=== PATIENT | female | born 1940 | race Caucasian/White ===

== ENCOUNTER 2022-08-13 14:36 | Inpatient (IN) | payer MEDICARE ==
[2022-08-13 18:43] VITALS: BMI 25.8
[2022-08-13] MEDS ORDERED: Ondansetron ODT 4 MG TAB PO PRN (19:16)
[2022-08-13] MEDS ORDERED: Acetaminophen 650 MG Suppository PR PRN (19:16)
[2022-08-13] MEDS ORDERED: Ondansetron PF 4 MG/2 ML Vial IVP PRN (19:16)
[2022-08-13 19:56] LABS: #Lymphocytes 0.7 thou/uL (1.20-3.40); #Neutrophils 7.5 thou/uL (1.40-6.50); %Basophils 0.2 % (0.0-1.0); %Eosinophils 0.1 % (0.0-10.0); %Lymphocytes 8.8 % (21.0-51.0); %Monocytes 0.3 % (0.0-10.0); %Neutrophils 90.7 % (42.0-75.0); Hemoglobin 13.8 g/dL (12.0-16.0); Mean Corpuscular HGB CONC 33.2 g/dL (32.0-36.0); Mean Corpuscular Hemoglobin 31.2 pg (27.0-31.0); Mean Corpuscular Volume 93.9 fl (78.0-98.0); Mean Platelet Volume 6.4 fL (7.4-10.4); Platelet Count 359 thou/uL (130-400); RBC Distribution Width 12.6 % (11.5-14.5); Red Blood Cell (RBC) Count 4.43 mill/uL (4.20-5.40); White Blood Cell (WBC) Count 8.2 thou/uL (4.8-10.8)
[2022-08-13] MEDS ORDERED: Ketorolac Tromethamine 30 MG/ML VIAL IVP PRN (19:58)
[2022-08-13] MEDS ORDERED: FLU VACC QS2022-23(65YR UP)/PF 240 MCG/0.7 ML SYRINGE IM ONE (20:15)
[2022-08-13 20:25] LABS: ALT (SGPT) 20 U/L (8-55); AST (SGOT) 15 U/L (5-34); Albumin 4.5 g/dL (3.4-4.8); Alkaline Phosphatase 100 U/L (40-110); Anion Gap 14 mmol/L (10-20); BUN (Urea Nitrogen) 13 mg/dL (9.8-20.1); Bilirubin, Total 0.4 mg/dL (0.2-1.2); Calc. Creatinine Clearance 60 mL/min (70-130); Calcium 10.4 mg/dL (7.8-10.44); Carbon Dioxide 21 mmol/L (23-31); Chloride 107 mmol/L (98-107); Estimated GFR 70; Globulin 3.4 g/dL (2.4-3.5); Glucose 144 mg/dL (83-110); Potassium 3.9 mmol/L (3.5-5.1); Protein, Total 7.9 g/dL (5.8-8.1); Sodium 138 mmol/L (136-145)
[2022-08-13 20:28] LABS: Troponin I Less than 0.010 ng/mL (< 0.028)
[2022-08-13 20:51] LABS: Phosphorus 2.9 mg/dL (2.3-4.7)
[2022-08-13] MEDS ORDERED: Lactated Ringer's 1,000 ML IV SCH (21:00)
[2022-08-13] MEDS: traZODone HCl 150 MG TAB PO SCH (21:01)
[2022-08-13 23:02] LABS: Troponin I Less than 0.010 ng/mL (< 0.028)
[2022-08-14 05:01] LABS: #Lymphocytes 1.5 thou/uL (1.20-3.40); #Monocytes 0.6 thou/uL (0.11-0.59); %Basophils 0.1 % (0.0-1.0); %Eosinophils 0.2 % (0.0-10.0); %Neutrophils 76.8 % (42.0-75.0); Hemoglobin 12.1 g/dL (12.0-16.0); Mean Corpuscular HGB CONC 33.1 g/dL (32.0-36.0); Mean Corpuscular Hemoglobin 31.5 pg (27.0-31.0); Mean Corpuscular Volume 95.2 fl (78.0-98.0); Mean Platelet Volume 6.6 fL (7.4-10.4); Platelet Count 303 thou/uL (130-400); RBC Distribution Width 12.7 % (11.5-14.5); Red Blood Cell (RBC) Count 3.83 mill/uL (4.20-5.40); White Blood Cell (WBC) Count 9.1 thou/uL (4.8-10.8)
[2022-08-14 05:22] LABS: Anion Gap 13 mmol/L (10-20); BUN (Urea Nitrogen) 19 mg/dL (9.8-20.1); Calc. Creatinine Clearance 67 mL/min (70-130); Calcium 9.6 mg/dL (7.8-10.44); Carbon Dioxide 23 mmol/L (23-31); Cardiac Risk 2.2 (Less than 4.5); Chloride 106 mmol/L (98-107); Cholesterol 116 mg/dl (< 200 Desired); Estimated GFR 80; Glucose 113 mg/dL (83-110); HDL Cholesterol 52 mg/dL (>60 Neg Risk); LDL Cholesterol, Calculated 49 mg/dL; Potassium 3.7 mmol/L (3.5-5.1); Sodium 138 mmol/L (136-145); Triglycerides 77 mg/dL (Less than 150)
[2022-08-14] MEDS ORDERED: EVOLOCUMAB 420 MG/3.5 ML SC SCH (09:00)
[2022-08-14] MEDS: Venlafaxine HCl XR 150 MG CAP PO SCH (09:33)
[2022-08-14] MEDS: Aspirin 81 mg Enteric Coated Tablet PO SCH (09:33)
[2022-08-14] MEDS: Atenolol 25 MG TAB PO SCH (09:34)
[2022-08-14] MEDS: Ketorolac Tromethamine 30 MG/ML VIAL IVP SCH ×3 (09:37→21:57)
[2022-08-14] MEDS ORDERED: guaiFENesin/Codeine 200 mg/20 mg 10 ml Cup PO SCH (16:45)
[2022-08-14] MEDS ORDERED: Acetaminophen 325 MG TAB PO SCH (18:45)
[2022-08-14] MEDS: Benzonatate 100 MG CAP PO SCH (21:57)
[2022-08-14] MEDS: traZODone HCl 150 MG TAB PO SCH (21:57)
[2022-08-15] MEDS: Ketorolac Tromethamine 30 MG/ML VIAL IVP SCH ×4 (04:08→22:47)
[2022-08-15 04:57] LABS: #Eosinphils 0.2 thou/uL (0.0-0.7); #Monocytes 0.4 thou/uL (0.11-0.59); #Neutrophils 3.5 thou/uL (1.40-6.50); %Basophils 0.7 % (0.0-1.0); %Eosinophils 2.5 % (0.0-10.0); %Lymphocytes 33.3 % (21.0-51.0); %Monocytes 6.2 % (0.0-10.0); %Neutrophils 57.3 % (42.0-75.0); Hemoglobin 12.2 g/dL (12.0-16.0); Mean Corpuscular HGB CONC 31.7 g/dL (32.0-36.0); Mean Corpuscular Hemoglobin 31.2 pg (27.0-31.0); Mean Corpuscular Volume 98.4 fl (78.0-98.0); Mean Platelet Volume 7.2 fL (7.4-10.4); Platelet Count 193 thou/uL (130-400); RBC Distribution Width 12.9 % (11.5-14.5); Red Blood Cell (RBC) Count 3.92 mill/uL (4.20-5.40); White Blood Cell (WBC) Count 6.1 thou/uL (4.8-10.8)
[2022-08-15 05:58] LABS: Anion Gap 13 mmol/L (10-20); BUN (Urea Nitrogen) 20 mg/dL (9.8-20.1); Calc. Creatinine Clearance 64 mL/min (70-130); Calcium 9.2 mg/dL (7.8-10.44); Carbon Dioxide 18 mmol/L (23-31); Chloride 109 mmol/L (98-107); Estimated GFR 75; Glucose 87 mg/dL (83-110); Potassium 4.5 mmol/L (3.5-5.1); Sodium 135 mmol/L (136-145)
[2022-08-15] MEDS: Venlafaxine HCl XR 150 MG CAP PO SCH (09:32)
[2022-08-15] MEDS: Atenolol 25 MG TAB PO SCH (09:32)
[2022-08-15] MEDS: Aspirin 81 mg Enteric Coated Tablet PO SCH (09:32)
[2022-08-15] MEDS: Benzonatate 100 MG CAP PO SCH ×3 (09:33→20:41)
[2022-08-15] MEDS: GUAIFENESIN SF SOLN 200 MG/10 ML UDCUP PO SCH ×3 (11:40→22:47)
[2022-08-15] MEDS: traZODone HCl 150 MG TAB PO SCH (20:41)
[2022-08-15] MEDS: Acetaminophen 325 MG TAB PO PRN (20:41)
[2022-08-15] MEDS ORDERED: predniSONE 50 MG TAB PO SCH (21:00)
[2022-08-16] MEDS ORDERED: predniSONE 50 MG TAB PO SCH ×2 (03:00→09:00)
[2022-08-16] MEDS: Ketorolac Tromethamine 30 MG/ML VIAL IVP SCH ×3 (03:21→16:55)
[2022-08-16] MEDS: GUAIFENESIN SF SOLN 200 MG/10 ML UDCUP PO SCH ×3 (03:21→16:55)
[2022-08-16 05:08] LABS: #Lymphocytes 0.6 thou/uL (1.20-3.40); #Monocytes 0.1 thou/uL (0.11-0.59); #Neutrophils 5.6 thou/uL (1.40-6.50); %Basophils 0.1 % (0.0-1.0); %Eosinophils 0.1 % (0.0-10.0); %Neutrophils 88.7 % (42.0-75.0); Hemoglobin 12.3 g/dL (12.0-16.0); Mean Corpuscular HGB CONC 32.7 g/dL (32.0-36.0); Mean Corpuscular Volume 94.6 fl (78.0-98.0); Mean Platelet Volume 6.4 fL (7.4-10.4); Platelet Count 308 thou/uL (130-400); RBC Distribution Width 12.6 % (11.5-14.5); Red Blood Cell (RBC) Count 3.99 mill/uL (4.20-5.40); White Blood Cell (WBC) Count 6.4 thou/uL (4.8-10.8)
[2022-08-16 05:26] LABS: Anion Gap 12 mmol/L (10-20); BUN (Urea Nitrogen) 15 mg/dL (9.8-20.1); Calc. Creatinine Clearance 64 mL/min (70-130); Calcium 9.7 mg/dL (7.8-10.44); Carbon Dioxide 22 mmol/L (23-31); Chloride 106 mmol/L (98-107); Estimated GFR 75; Glucose 173 mg/dL (83-110); Potassium 4.1 mmol/L (3.5-5.1); Sodium 136 mmol/L (136-145)
[2022-08-16] MEDS ORDERED: diphenhydrAMINE 50 MG CAP PO SCH (09:00)
[2022-08-16] MEDS: Atenolol 25 MG TAB PO SCH (09:03)
[2022-08-16] MEDS: Aspirin 81 mg Enteric Coated Tablet PO SCH (09:03)
[2022-08-16] MEDS: Venlafaxine HCl XR 150 MG CAP PO SCH (09:03)
[2022-08-16] MEDS: Benzonatate 100 MG CAP PO SCH ×2 (09:04→15:32)
[2022-08-16] MEDS: Acetaminophen 325 MG TAB PO PRN ×2 (09:04→15:34)
[2022-08-16 15:54] VITALS: BP 135/64; TEMP 98.2
== END 2022-08-16 18:09 | disposition home or self-care (01) | DRG 313 ==
LOC: 2SW 14:36 → OBSVTOIN 08-15 11:52
PROVIDERS: ADMIT Internal Medicine; ATTEND Internal Medicine
DX: R07.89 Other chest pain (principal); I25.10 Atherosclerotic heart disease of native coronary artery without angina pectoris; I10 Essential (primary) hypertension; E78.5 Hyperlipidemia, unspecified; K21.9 Gastro-esophageal reflux disease without esophagitis; Z20.822 Contact with and (suspected) exposure to COVID-19; Z88.5 Allergy status to narcotic agent; Z88.0 Allergy status to penicillin; Z91.041 Radiographic dye allergy status; Z79.82 Long term (current) use of aspirin; Z79.899 Other long term (current) drug therapy; Z85.3 Personal history of malignant neoplasm of breast; Z98.890 Other specified postprocedural states
CPT/HCPCS: 36415; 78306; 80048; 80053; 80061; 83735; 84100; 84484; 85025; 90471; 90662; 90732; 96374; 96376; A9503; G0008; G0009; G0378; J1885; J7120; J7512; U0003; U0005

== ENCOUNTER 2022-11-06 09:34 | Outpatient (CLI) | payer MEDICARE | END 2022-11-06 09:35 | disposition home or self-care (01) | LOC: RAD 09:34 | PROVIDERS: ATTEND Internal Medicine Critical Care Medicine | DX: R06.00 Dyspnea, unspecified (principal) | CPT/HCPCS: 71046 ==